=== PATIENT | female | born 1965 | race Caucasian/White ===

== ENCOUNTER 2020-05-27 06:19 | Outpatient (REF) | payer OTHER, SELFPAY | END 2020-05-27 06:20 | disposition home or self-care (01) | LOC: HO.LAB 06:19 | PROVIDERS: Visit Provider Internal Medicine | DX: Z20.828 Contact with and (suspected) exposure to other viral communicable diseases (principal) | CPT/HCPCS: C9803; U0003 ==

== ENCOUNTER 2020-07-14 06:50 | Outpatient (REF) | payer OTHER, SELFPAY | END 2020-07-14 06:51 | disposition home or self-care (01) | LOC: HO.LAB 06:50 | PROVIDERS: PCP Internal Medicine; Visit Provider Internal Medicine | DX: Z20.822 Contact with and (suspected) exposure to COVID-19 (principal) | CPT/HCPCS: 36415; C9803; U0003 ==

== ENCOUNTER 2020-08-12 08:19 | Outpatient (REF) | payer OTHER, SELFPAY ==
[2020-08-12 11:13] LABS: MANUAL DIFF FLAG NO
[2020-08-12 11:25] LABS: Basophils Absolute Auto 0.1 X10*3/uL (0.0-0.2); Basophils Percent Auto 1.1 % (0-2); Eosinophils Absolute Auto 0.2 X10*3/uL (0.0-0.4); Eosinophils Percent Auto 4.1 % (0-4); Hemoglobin 12.5 g/dl (12.0-16.0); Imm Gran Abs Auto 0.01 X10*3/uL (0.00-0.03); Imm Gran Pct Auto 0.2 % (0.0-0.4); Lymphocytes Absolute Auto 1.6 X10*3/uL (1.2-4.9); Lymphocytes Percent Auto 28.2 % (20-40); Mean Corpuscular HGB Conc 31.3 g/dl (31.0-35.0); Mean Corpuscular Hemoglobin 28.9 pg (27.0-33.0); Mean Corpuscular Volume 92.6 fL (80-98); Mean Platelet Volume 10.9 fL (9.4-12.3); Monocytes Absolute Auto 0.4 X10*3/uL (0.1-1.2); Monocytes Percent Auto 7.8 % (2-11); Neutrophils Absolute Auto 3.3 X10*3/uL (2.0-8.3); Neutrophils Percent Auto 58.6 % (45-73); Platelet Count 270 X10*3/uL (160-400); Red Blood Count 4.32 X10*6/uL (4.20-5.50); Red Cell Distribution Width 13.3 % (11.0-16.0); White Blood Count 5.6 X10*3/uL (4.8-10.8)
[2020-08-12 12:04] LABS: Alanine Aminotransferase 20 U/L (0-31); Albumin Level 4.3 g/dL (3.5-5.0); Alkaline Phosphatase 93 U/L (39-117); Anion Gap 13 (12-20); Aspartate Amino Transferase 23 U/L (5-31); Bilirubin Total 0.3 mg/dL (0.0-1.0); Blood Urea Nitrogen 20 mg/dL (9-16); Calcium 8.7 mg/dL (8.4-10.2); Carbon Dioxide 26 mmol/L (22-29); Chloride 107 mmol/L (96-108); Cholesterol 232 mg/dL; Estimated Glomerular Filt Rate > 60; Glucose Fasting 88 mg/dL (60-99); HDL Cholesterol 65 mg/dL; LDL Cholesterol Calculated 149 mg/dl; Potassium 4.4 mmol/L (3.3-5.1); Sodium 142 mmol/L (135-145); Total Protein 6.6 g/dL (6.5-8.0); Triglycerides 90 mg/dL
[2020-08-12 12:11] LABS: Thyroid Stimulating Hormone 1.57 uIU/mL (0.32-4.0); Vitamin D 25-OH Total 20.8 ng/mL (>30)
== END 2020-08-12 08:20 | disposition home or self-care (01) ==
LOC: HO.HMGCLDS 08:19
PROVIDERS: PCP Internal Medicine; Visit Provider Internal Medicine
DX: Z00.00 Encounter for general adult medical examination without abnormal findings (principal); E78.00 Pure hypercholesterolemia, unspecified; E66.3 Overweight
CPT/HCPCS: 36415; 80053; 80061; 82306; 84443; 85025

== ENCOUNTER 2021-07-29 07:56 | Outpatient (REF) | payer OTHER, SELFPAY ==
[2021-07-29 11:26] LABS: MANUAL DIFF FLAG NO
[2021-07-29 11:31] LABS: Basophils Percent Auto 0.9 % (0-2); Eosinophils Absolute Auto 0.1 X10*3/uL (0.0-0.4); Eosinophils Percent Auto 2.6 % (0-4); Hemoglobin 12.5 g/dl (12.0-16.0); Imm Gran Abs Auto 0.01 X10*3/uL (0.00-0.03); Imm Gran Pct Auto 0.2 % (0.0-0.4); Lymphocytes Absolute Auto 1.3 X10*3/uL (1.2-4.9); Lymphocytes Percent Auto 26.9 % (20-40); Mean Corpuscular HGB Conc 32.1 g/dl (31.0-35.0); Mean Corpuscular Hemoglobin 29.4 pg (27.0-33.0); Mean Corpuscular Volume 91.8 fL (80.0-98.0); Mean Platelet Volume 11.1 fL (9.4-12.3); Monocytes Absolute Auto 0.3 X10*3/uL (0.1-1.2); Monocytes Percent Auto 5.8 % (2-11); Neutrophils Percent Auto 63.6 % (45-73); Platelet Count 254 X10*3/uL (160-400); Red Blood Count 4.25 X10*6/uL (4.20-5.50); Red Cell Distribution Width 13.2 % (11.0-16.0); White Blood Count 4.7 X10*3/uL (4.8-10.8)
[2021-07-29 11:58] LABS: Alanine Aminotransferase 20 U/L (0-31); Albumin Level 4.3 g/dL (3.5-5.0); Alkaline Phosphatase 78 U/L (39-117); Anion Gap 12 (12-20); Aspartate Amino Transferase 24 U/L (5-31); Bilirubin Total 0.2 mg/dL (0.0-1.0); Blood Urea Nitrogen 10 mg/dL (9-16); Calcium 9.5 mg/dL (8.4-10.2); Carbon Dioxide 24 mmol/L (22-29); Chloride 110 mmol/L (96-108); Cholesterol 212 mg/dL; Estimated Glomerular Filt Rate > 60; Glucose Fasting 92 mg/dL (60-99); HDL Cholesterol 51 mg/dL; LDL Cholesterol Calculated 141 mg/dl; Potassium 4.1 mmol/L (3.3-5.1); Sodium 142 mmol/L (135-145); Total Protein 6.7 g/dL (6.5-8.0); Triglycerides 102 mg/dL
[2021-07-29 12:06] LABS: Thyroid Stimulating Hormone 1.43 uIU/mL (0.32-4.0); Vitamin D 25-OH Total 28.5 ng/mL (>30)
== END 2021-07-29 07:57 | disposition home or self-care (01) ==
LOC: HO.HMGCLDS 07:56
PROVIDERS: PCP Internal Medicine; Visit Provider Internal Medicine
DX: Z00.00 Encounter for general adult medical examination without abnormal findings (principal); E78.00 Pure hypercholesterolemia, unspecified; E55.9 Vitamin D deficiency, unspecified
CPT/HCPCS: 36415; 80053; 80061; 82306; 84443; 85025

== ENCOUNTER 2022-03-25 07:02 | Outpatient (REF) | payer OTHER, SELFPAY ==
[2022-03-25 11:57] LABS: Vitamin D 25-OH Total 35.4 ng/mL (>30)
[2022-03-25 11:58] LABS: Alanine Aminotransferase 26 U/L (0-31); Albumin Level 4.5 g/dL (3.5-5.0); Alkaline Phosphatase 93 U/L (39-117); Anion Gap 16 (12-20); Aspartate Amino Transferase 25 U/L (5-31); Bilirubin Total 0.3 mg/dL (0.0-1.0); Blood Urea Nitrogen 21 mg/dL (9-16); Calcium 9.3 mg/dL (8.4-10.2); Carbon Dioxide 24 mmol/L (22-29); Chloride 106 mmol/L (96-108); Cholesterol 196 mg/dL; Estimated Glomerular Filt Rate > 60; Glucose Fasting 97 mg/dL (60-99); HDL Cholesterol 60 mg/dL; LDL Cholesterol Calculated 114 mg/dl; Potassium 4.9 mmol/L (3.3-5.1); Sodium 141 mmol/L (135-145); Total Protein 6.8 g/dL (6.5-8.0); Triglycerides 113 mg/dL
== END 2022-03-25 07:03 | disposition home or self-care (01) ==
LOC: HO.HMGCLDS 07:02
PROVIDERS: PCP Internal Medicine; Visit Provider Internal Medicine
DX: E78.00 Pure hypercholesterolemia, unspecified (principal); E55.9 Vitamin D deficiency, unspecified
CPT/HCPCS: 36415; 80053; 80061; 82306

== ENCOUNTER 2024-04-03 08:00 | Outpatient (REF) | payer OTHER, SELFPAY ==
[2024-04-03 10:01] LABS: MANUAL DIFF FLAG NO
[2024-04-03 10:04] LABS: Appearance Urine Turbid; Color Urine Yellow; Glucose Urine UA Negative (Negative); Leukocyte Esterase Urine Negative (Negative); Nitrite Urine Negative (Negative); PH 5.5 (5.0-9.0); Specific Gravity - Urine >= 1.030 (1.005-1.025); Urine Blood Negative (Negative); Urine Ketones Negative (Negative); Urine Protein Negative (Neg-Trace)
[2024-04-03 10:05] LABS: Basophils Absolute Auto 0.1 X10*3/uL (0.0-0.2); Eosinophils Absolute Auto 0.2 X10*3/uL (0.0-0.4); Eosinophils Percent Auto 4.4 % (0-4); Hematocrit 39.8 % (37.0-47.0); Hemoglobin 12.8 g/dl (12.0-16.0); Lymphocytes Absolute Auto 1.6 X10*3/uL (1.2-4.9); Lymphocytes Percent Auto 30.5 % (20-40); Mean Corpuscular HGB Conc 32.2 g/dl (31.0-35.0); Mean Corpuscular Hemoglobin 29.2 pg (27.0-33.0); Mean Corpuscular Volume 90.7 fL (80.0-98.0); Mean Platelet Volume 10.6 fL (9.4-12.3); Monocytes Absolute Auto 0.4 X10*3/uL (0.1-1.2); Monocytes Percent Auto 7.5 % (2-11); Neutrophils Absolute Auto 2.9 x10*3/uL (2.0-8.3); Neutrophils Percent Auto 56.6 % (45-73); Platelet Count 272 X10*3/uL (160-400); Red Blood Count 4.39 X10*6/uL (4.20-5.50); Red Cell Distribution Width 13.2 % (11.0-16.0); White Blood Count 5.2 X10*3/uL (4.8-10.8)
[2024-04-03 10:10] LABS: Bacteria Urine None Seen (None Seen); Hyaline Casts Urine 0-2 /LPF (0-2); RBC Urine 0-2 /HPF (0-2); WBC Urine 0-5 /HPF (0-5)
[2024-04-03 10:27] LABS: Alanine Aminotransferase 22 U/L (0-31); Albumin Level 4.4 g/dL (3.5-5.0); Alkaline Phosphatase 75 U/L (39-117); Anion Gap 11 (12-20); Aspartate Amino Transferase 24 U/L (5-31); Bilirubin Total 0.4 mg/dL (0.0-1.0); Blood Urea Nitrogen 15 mg/dL (9-16); Calcium 9.7 mg/dL (8.4-10.2); Carbon Dioxide 26 mmol/L (22-29); Chloride 110 mmol/L (96-108); Cholesterol 192 mg/dL (<200); Estimated Glomerular Filt Rate > 60; Glucose Fasting 101 mg/dL (60-99); HDL Cholesterol 63 mg/dL (>40); LDL Cholesterol Calculated 107 mg/dL (<100); Sodium 143 mmol/L (135-145); Total Protein 6.9 g/dL (6.5-8.0); Triglycerides 114 mg/dL (<150)
[2024-04-03 10:45] LABS: Thyroid Stimulating Hormone 1.47 uIU/mL (0.32-4.0); Vitamin D 25-OH Total 45.2 ng/mL (>30)
== END 2024-04-03 08:01 | disposition home or self-care (01) ==
LOC: HO.HMGCLDS 08:00
PROVIDERS: PCP Internal Medicine; Visit Provider Internal Medicine
DX: E78.00 Pure hypercholesterolemia, unspecified (principal); E55.9 Vitamin D deficiency, unspecified; E66.3 Overweight
CPT/HCPCS: 36415; 80053; 80061; 81001; 82306; 84443; 85025

== ENCOUNTER 2024-09-19 08:54 | Outpatient (AMB) | payer OTHER, SELFPAY ==
--- NOTE | 2024-09-19 08:54 | A.OFFPC_ITS ---
Vital Signs 09/19/24 08:58 Height 5 ft 2 in Weight 160 lb BMI 29.3 BP 140/80 H Blood Pressure Location Rt brachial Pulse 52 Pulse Source Pulse Oximeter Temp 97.2 F Pulse Oximetry (%) 97 Intake Visit Reasons: physical Intake Note: no issues Allergies No Known Allergies Allergy (Verified 09/19/24 09:33) Medication List - Last Reconciled 09/19/24 by Olivia Reyes PA-C cholecalciferol (vitamin D3) 25 mcg PO DAILY rosuvastatin 5 mg PO DAILY PFSH Medical History Elevated blood pressure reading Overweight (BMI 25.0-29.9) Screening for HPV (human papillomavirus) (~08/14/19) History of mammogram (~03/29/24) Ductal hyperplasia of breast Vitamin D deficiency Mild hypercholesterolemia Menopause Depression Surgical History History of colonoscopy (~11/03/17) Physical exam (Primary Care) Vital Signs: Last Vital Signs Temp 97.2 F 09/19/24 08:58 Pulse 52 09/19/24 08:58 BP 140/80 H 09/19/24 08:58 Pulse Ox 97 09/19/24 08:58 Care Plan Goal for BP management: <130/80 patient to monitor her blood pressure over the next 2 weeks and return with blood pressure diary to determine the patient needs to be started on blood pressure medication. BMI result Body Mass Index 29.3 BMI Assessment/Plan discussion: High BMI High, discussed plan: lifestyle, weight reduction, dietary, physical activity and alcohol moderation Coding Level of Care Code New Pt Prev Care 18-39yr([id number] Diagnoses Annual physical exam Z00.00 Vitamin D deficiency E55.9 Mild hypercholesterolemia E78.00 Depression F32.A Ductal hyperplasia of breast N60.99 Overweight (BMI 25.0-29.9) E66.3 Elevated blood pressure reading R03.0 Assessment & Plan Assessment & Plan (1) Annual physical exam: Code(s): Z00.00 - Encounter for general adult medical examination without abnormal findings (2) Vitamin D deficiency: Code(s): E55.9 - Vitamin D deficiency, unspecified Category: Medical Plan: Patient's last vitamin-D levels in April of 2024 within normal ranges. Patient to continue vitamin-D supplement 25 mcg daily. Condition is chronic and stable continue to monitor. (3) Mild hypercholesterolemia: Code(s): E78.00 - Pure hypercholesterolemia, unspecified Category: Medical Plan: Goal LDL less than 100. Last LDL 04/22/2024 was 107. Will continue rosuvastatin 5 mg daily. Patient to improve her diet and exercise regimen. To decrease salt intake. Condition is chronic and stable continue to monitor. (4) Depression: Code(s): F32.A - Depression, unspecified Category: Medical Plan: Patient with history of depression has been state of lies without any medications. Condition is chronic and stable continue to monitor. (5) Ductal hyperplasia of breast: Comment: Followed by [facility]. Final pathology for ultrasound guided core biopsy of mass in the right breast revealed nodular area of adenosis cysts, usual ductal hyperplasia, and pseudoangiomatous stromal hyperplasia (PASH) Code(s): N60.99 - Unspecified benign mammary dysplasia of unspecified breast Category: Medical Plan: Patient being followed by [facility]. Last needle biopsy was 04/22/2024. Patient due for repeat ultrasound 6 months since April. Condition is chronic and stable continue to monitor. (6) Overweight (BMI 25.0-29.9): Code(s): E66.3 - Overweight Category: Medical Plan: Patient has improved her diet and exercise regimen. Condition is chronic and stable continue to monitor. (7) Elevated blood pressure reading: Code(s): R03.0 - Elevated blood-pressure reading, without diagnosis of hypertension Category: Medical Plan: Patient's blood pressure noted to be elevated. She will return in 2 weeks with blood pressure diary to determine if patient will need to be started on blood pressure medication. Condition is stable will continue to monitor. Plan Plan Patient was informed and verbally consented to the use of an ambient scribe for clinic note documentation during this visit. 1. Elevated blood-pressure reading, without diagnosis of hypertension Blood pressure monitoring at home is recommended to determine if intervention beyond diet and stress control is required. 2. Hyperlipidemia Rosuvastatin remains prescribed to target LDL below 100 mg/dL. Dietary modifications will emphasize low fat/sodium intake. Re-testing is scheduled as part of monitoring efforts. 3. Vitamin D Deficiency Continuation of vitamin D supplementation with monitoring is advised. 4. Weight Management Issues The patient is counseled to focus on a balanced diet low in saturated fats, supporting both weight and cholesterol management goals. 5. Usual Ductal Hyperplasia Right Breast Scheduled ultrasound follow-up will monitor the lesion status. No immediate interventions unless changes present. Discussion Notes I discussed with the patient the management of her current health problems, notably hyperlipidemia, prehypertension, and her history of usual ductal hyperplasia. We reviewed dietary factors impacting cholesterol and blood pressure, encouraging cessation of high-fat diets, such as the keto plan recommended by [facility], as adverse for cholesterol management. I explained the importance of follow-up imaging for usual ductal hyperplasia and the role of ongoing blood pressure monitoring. The necessity for lifestyle adjustments to manage her weight and stress, engaging in routine exercise, and continuing vitamin D supplementation were emphasized. The plan to re-evaluate blood work in preparation for her next follow-up was also highlighted. Orders: Orders Complete Blood Count Auto Diff Today Z00.00 - Encounter for general adult medical examination without abnormal findings Comprehensive [place]. Panel Fast Today Z00.00 - Encounter for general adult medical examination without abnormal findings C Reactive Protein Today Z00.00 - Encounter for general adult medical examination without abnormal findings Hemoglobin A1c Today Z00.00 - Encounter for general adult medical examination without abnormal findings Lipid Panel Today Z00.00 - Encounter for general adult medical examination without abnormal findings Magnesium Today Z00.00 - Encounter for general adult medical examination without abnormal findings Vitamin D 25-OH Total Today Z00.00 - Encounter for general adult medical examination without abnormal findings Vitamin B12 and Folate Today Z00.00 - Encounter for general adult medical examination without abnormal findings Vitamin B1 Today Z00.00 - Encounter for general adult medical examination without abnormal findings Erythrocyte Sedimentation Rate Today Z00.00 - Encounter for general adult medical examination without abnormal findings Liver Panel Today Z00.00 - Encounter for general adult medical examination without abnormal findings TSH reflex Free T4 Today Z00.00 - Encounter for general adult medical examination without abnormal findings Parathyroid Hormone Intact Today Z00.00 - Encounter for general adult medical examination without abnormal findings Patient Instructions: Patient Instructions - Continue taking rosuvastatin as prescribed. - Follow dietary recommendations to reduce dietary fats and sodium. - Complete scheduled follow-up breast ultrasound. - Monitor blood pressure at home with purchased or borrowed equipment and log daily readings. - Maintain current exercise regime and consider stress reducing techniques. - Follow-up in two weeks for blood pressure re-evaluation and general assessment. - Continue taking vitamin D supplements as directed. - Contact if experiencing symptoms like chest pain or significant blood pressure changes. Scribe Plan - Not visible on output: History of Present Illness The patient is a 59-year-old female presenting for an annual physical examination. Her medical history includes hyperlipidemia, managed with rosuvastatin, and vitamin D deficiency, for which she takes supplementation. Although she previously experienced depression, it is not currently being treated pharmacologically. She underwent a needle biopsy on 04/12/2024 of the right breast, revealing usual ductal hyperplasia, with follow-up imaging planned. Additional history includes normal findings on a 2018 colonoscopy, with a planned follow-up in 2027. Her current concerns involve maintaining weight post-menopause, high stress levels possibly affecting her blood pressure, and challenges adhering to dietary recommendations to both manage cholesterol and maintain or reduce weight. Social History - Employment: Works in [employer], noted as stressful. - Exercise: Runs and swims regularly, exhibiting high levels of physical activity. - Nutrition: Following a high-fat, keto-like diet as part of a dietary program known as [facility]. - Weight Management: Reports difficulty maintaining weight post-menopause, and was previously on Contrave. - Lifestyle: Engages in multiple pharmaceutical and wellness interventions; stress noted as influencing hypertension and dietary choices. Review of Systems - Cardiovascular: Reports elevated blood pressure; denies chest pain or shortness of breath. - Gastrointestinal: Denies abdominal pain or constipation. - Genitourinary: Denies abnormal urination. - Musculoskeletal: Denies leg swelling. - Neurological: Denies dizziness. - Psychiatric: Denies current depression. Physical Exam Appearance: Alert. Oriented X3. No acute distress. Head: Normal external exam. Normocephalic. Atraumatic. Eyes: Pupils are equal, round, and reactive to light. Extraocular movements intact. Conjunctiva and sclera normal. Eyelids normal. Ears: External auditory canal normal. Tympanic membranes normal. Throat: Pharynx normal. Uvula midline. Moist mucous membranes. Neck: Normal inspection. Neck supple. Full range of motion. No adenopathy. Thyroid Normal. No meningeal signs. No neck mass noted. Cardiovascular: Normal heart rate and rhythm. Heart sound normal. No murmurs noted. Pulses normal throughout. Respiratory: No respiratory distress. Painless inspiration. Breath sounds normal. No wheezes/rales/rhonchi noted. Chest nontender. No accessory muscle usage noted or decreased air movement noted. Abdomen: Soft and nontender. Bowel sounds normal in all 4 quadrants. No distention noted. No organomegaly noted. No visible injury noted. Back: No costovertebral angle tenderness. Full range of motion noted. Skin: Skin warm and dry. Normal skin color. Normal skin turgor. No rashes/lesions/lacerations noted. Extremities: No lower extremity edema. Extremities exhibit normal range of motion. Extremities nontender. Neuro: Oriented X 3. No motor deficit. No sensory deficit. Reflexes normal. Blood pressure was noted to be 140/80. Results - Labs: LDL 107 mg/dL (desirable <100 mg/dL), Total Cholesterol 192 mg/dL (desirable <200 mg/dL), Normal Vitamin D levels, Normal thyroid panel - Tests and Diagnostics: Right breast usual ductal hyperplasia identified via needle biopsy, scheduled ultrasound follow-up, Colonoscopy performed in 2018 was normal
[2024-09-19 08:58] VITALS: BP 140/80; PULSE 52; TEMP 36.2; O2SAT 97; BMI 29.3
--- OUTSIDE RECORDS SUMMARY | 2024-09-19 09:46 | XMS_ITS | Continuity of Care Document ---
Author Organization [employer] Address [address] [place] [address] Insurance Providers Payer Plan Claims Address Claims Phone Policy Number Group Number Relation Employer Guarantor Name Guarantor Guarantor Address Guarantor Phone [place] [address] [facility] [address], [place] [address] tel:[phone] [id number] [id number] Self Kandi Ryder [address] [place] [address] [id number] [facility] [place] [address] [facility] [address], [place] [address] tel:[phone] [id number] [id number] Self Kandi Ryder [address] [place] [address] [id number] Problems Condition ICD9 code ICD10 code SNOMED code Start Date End Date S tatus Encounter for screening for other metabolic disorders Z13.228 Results No Results Allergies, adverse reactions, alerts No known allergies and adverse reactions Medications No administered medications reported Vital Signs No vital signs reported Social History No smoking Hx information available
== END 2024-09-19 09:24 | disposition home or self-care (01) ==
LOC: HO.HMCSH 08:54
PROVIDERS: PCP Internal Medicine; Visit Provider Physician Assistant Medical
DX: Z00.00 Encounter for general adult medical examination without abnormal findings (principal); E55.9 Vitamin D deficiency, unspecified; E78.00 Pure hypercholesterolemia, unspecified; F32.A Depression, unspecified; N60.99 Unspecified benign mammary dysplasia of unspecified breast; E66.3 Overweight; R03.0 Elevated blood-pressure reading, without diagnosis of hypertension

== ENCOUNTER → 2024-09-19 08:54 | Outpatient (BNVA) | payer OTHER, SELFPAY | PROVIDERS: PCP Internal Medicine; Visit Provider Physician Assistant Medical ==

== ENCOUNTER 2024-09-28 07:54 | Outpatient (REF) | payer OTHER, SELFPAY ==
[2024-09-28 10:20] LABS: MANUAL DIFF FLAG NO
[2024-09-28 10:24] LABS: Basophils Absolute Auto 0.1 X10*3/uL (0.0-0.2); Basophils Percent Auto 1.3 % (0-2); Eosinophils Absolute Auto 0.2 X10*3/uL (0.0-0.4); Eosinophils Percent Auto 3.4 % (0-4); Hematocrit 38.8 % (37.0-47.0); Hemoglobin 12.4 g/dl (12.0-16.0); Imm Gran Abs Auto 0.01 X10*3/uL (0.00-0.03); Imm Gran Pct Auto 0.2 % (0.0-0.4); Lymphocytes Absolute Auto 1.5 X10*3/uL (1.2-4.9); Lymphocytes Percent Auto 32.4 % (20-40); Mean Corpuscular Volume 90.7 fL (80.0-98.0); Mean Platelet Volume 10.7 fL (9.4-12.3); Monocytes Absolute Auto 0.3 X10*3/uL (0.1-1.2); Monocytes Percent Auto 6.5 % (2-11); Neutrophils Absolute Auto 2.7 x10*3/uL (2.0-8.3); Neutrophils Percent Auto 56.2 % (45-73); Platelet Count 263 X10*3/uL (160-400); Red Blood Count 4.28 X10*6/uL (4.20-5.50); Red Cell Distribution Width 13.4 % (11.0-16.0); White Blood Count 4.8 X10*3/uL (4.8-10.8)
[2024-09-28 10:41] LABS: Estimated Average Glucose 111 mg/dL; Hemoglobin A1c % 5.5 % (<6.0); Total Hemoglobin (HGBA1C) 3337.8779 umol/L
[2024-09-28 11:00] LABS: Alanine Aminotransferase 33 U/L (0-31); Albumin Level 4.3 g/dL (3.5-5.0); Anion Gap 9 (12-20); Aspartate Amino Transferase 51 U/L (5-31); Bilirubin Direct 0.1 mg/dL (0.0-0.5); Bilirubin Total 0.4 mg/dL (0.0-1.0); Blood Urea Nitrogen 17 mg/dL (9-16); C Reactive Protein 0.25 mg/dL (< or = 0.50); Calcium 9.7 mg/dL (8.4-10.2); Carbon Dioxide 28 mmol/L (22-29); Chloride 111 mmol/L (96-108); Cholesterol 195 mg/dL (<200); Estimated Glomerular Filt Rate > 60; Glucose Fasting 96 mg/dL (60-99); HDL Cholesterol 65 mg/dL (>40); LDL Cholesterol Calculated 112 mg/dL (<100); Potassium 4.5 mmol/L (3.3-5.1); Sodium 143 mmol/L (135-145); Total Protein 6.7 g/dL (6.5-8.0); Triglycerides 94 mg/dL (<150)
[2024-09-28 11:05] LABS: Parathyroid Hormone Intact 56.4 pg/mL (8.7-77.1)
[2024-09-28 11:15] LABS: Erythrocyte Sedimentation Rate 9 MM/HR (0-20)
[2024-09-28 11:16] LABS: Folate 9.9 ng/mL (> or = 4.0); Vitamin B12 259 pg/mL (200-900)
[2024-09-28 11:33] LABS: Alkaline Phosphatase 72 U/L (39-117); TSH reflex Free T4 1.56 uIU/mL (0.32-4.0); Vitamin D 25-OH Total 36.1 ng/mL (>30)
[2024-10-11 15:28] LABS: Vitamin B1 13 nmol/L (8-30)
== END 2024-09-28 07:55 | disposition home or self-care (01) ==
LOC: HO.HMGCLDS 07:54
PROVIDERS: PCP Internal Medicine; Visit Provider Physician Assistant Medical
DX: Z00.00 Encounter for general adult medical examination without abnormal findings (principal); Z13.1 Encounter for screening for diabetes mellitus; Z13.6 Encounter for screening for cardiovascular disorders
CPT/HCPCS: 36415; 80053; 80061; 80076; 82248; 82306; 82607; 82746; 83036; 83735; 83970; 84425; 84443; 85025; 85652; 86140

== ENCOUNTER 2024-10-22 08:54 | Outpatient (AMB) | payer OTHER, SELFPAY ==
--- NOTE | 2024-10-22 08:59 | MHC.PC.OV ---
Vital Signs 10/22/24 09:00 Height 5 ft 2 in Weight 154 lb BMI 28.2 BP 120/70 Respiration 14 Pulse 55 Pulse Source Pulse Oximeter Temp 97.6 F Temp Source Temporal Artery Scan Pulse Oximetry (%) 99 Oxygen Delivery Method Room Air Intake Visit Reasons: follow up Anesthesiologist Attending Required: No Accompanied by: Self / Same As Patient Allergies No Known Allergies Allergy (Verified 10/22/24 09:24) Medication List - Last Reconciled 10/22/24 by Olivia Reyes PA-C cholecalciferol (vitamin D3) 25 mcg PO DAILY rosuvastatin 5 mg PO DAILY Tobacco use date assessed: 10/22/24 Dental Screening Dental Screen Date: 10/22/24 Did you have a dental visit in the last 12 months?: Yes Did you have a dental problem in the last 6 months where you did not have access to dental care?: No Was dental information given to patient?: Patient has dentist HPI follow up HPI Details The patient is a 59-year-old female presenting with concerns regarding blood pressure management, hydration during exercise, muscle cramps, and potential liver enzyme abnormalities. Her blood pressure readings have been stable, typically around 120/70. She is actively engaged in a healthy lifestyle and prepares for the [email or web address]. An episode of dizziness was noted during exercise due to dehydration, with muscle cramps suggesting possible dehydration. She has been hydrating using electrolyte supplements and noon tablets. Furthermore, the patient takes a low-dose statin, expressing concern over a recent deviation in liver enzyme results, believing there may be an association with statin use. Follow-up testing for liver function has been planned in three to six months to monitor any changes. Social History - Engages in regular physical exercise, including long-distance running. - Actively monitors blood pressure and participates in a health-conscious lifestyle. - Dietary intake includes protein sources such as steak, fish, chicken, and snacks like peanut butter and granola. - Uses electrolyte supplements for hydration during exercise. 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 [facility] Medical History (Updated 10/22/24 @ 09:33 by Olivia Reyes PA-C) Elevated ALT measurement Elevated AST (SGOT) Elevated blood pressure reading Overweight (BMI 25.0-29.9) Screening for HPV (human papillomavirus) (~08/14/19) History of mammogram (~03/29/24) Ductal hyperplasia of breast Vitamin D deficiency Mild hypercholesterolemia Menopause Depression Surgical History History of colonoscopy (~11/03/17) Family History Father No problems noted. Mother Heart problem Social History Housing: House Alcohol intake: current Alcohol intake frequency: holidays/special occasions only Alcohol type: wine Patient Tobacco Use Status: Former Tobacco user service: No Current occupational status: employed Cognitive needs: No Hearing needs: No Vision needs: Yes (rx glasses) Questionnaire PHQ-9 Over the last 2 weeks, how often have you been bothered by any of the following problems? 1. Little interest or pleasure in doing things: not at all 2. Feeling down, depressed, or hopeless: not at all 3. Trouble falling or staying asleep, or sleeping too much: not at all 4. Feeling tired or having little energy: not at all 5. Poor appetite or overeating: not at all 6. Feeling bad about yourself - or that you are a failure or have let yourself or your family down: not at all 7. Trouble concentrating on things, such as reading the newspaper or watching television: not at all 8. Moving or speaking so slowly that other people could have noticed. Or the opposite - being so fidgety or restless that you have been moving around a lot more than usual: not at all 9. Thoughts that you would be better off or of hurting yourself in some way: not at all Total score: 0 Depression Screening Interpretation: Negative Depression Screening Done: Yes 57284 - PHQ-9 Billing: Yes Source: Developed by Drs. Malick Capps, Gloria Smith, Luis Alberto Moran and colleagues, with an educational david from [employer]. Thrive Questionnaire Date Thrive assessed: 10/22/24 I am a: Patient What is your living situation today?: I have a steady place to live Within the past 12 months, did the food you bought not last and you didn't have the money to get more?: Never true Within the past 12 months, did you worry whether your food would run out before you got money to buy more?: Never true Do you have trouble paying for medicines?: No Do you have trouble getting transportation to medical appointments?: No Do you have trouble paying your heating and electricity bill?: No Do you have trouble taking care of your child, family member or friend?: No Do you have trouble with day-to-day activities such as bathing, preparing meals, shopping, managing finances, etc.?: No Are you currently unemployed and looking for a job?: No Are you interested in more education?: No Please select the resources that you would like help with: None THRIVE Score: 0 AUDIT C Alcohol Use Questionnaire (AUDIT-C) 1. How often do you have a drink containing alcohol?: Monthly or less 2. How many drinks containing alcohol do you have on a typical day when you are drinking?: 1 or 2 3. How often do you have six or more drinks on one occasion?: Never Total Score: 1 Score Reviewed/Action Taken: No GENEVA-7 AMB Questionnaire GENEVA-7 Date GENEVA - 7 assessed: 10/22/24 Feeling nervous, anxious, or on edge: 0 = Not at all Not being able to stop or control worryin = Not at all Worrying too much about different things: 0 = Not at all Trouble relaxin = Not at all Being so restless that it is hard to sit still: 0 = Not at all Becoming easily annoyed or irritable: 0 = Not at all Feeling afraid as if something awful might happen: 0 = Not at all Total GENEVA-7 score (0-4 normal; 5-9 mild; 10-14 moderate; 15-21 severe): 0 Source: Developed by Drs. Malick Capps, Gloria Smith, Luis Alberto Moran and colleagues, with an educational david from [employer]. GENEVA-7 Assessment Billing GENEVA-7 Assessment Tool: GENEVA-7 Assessment 38902 Review of Systems Const Details: - Cardiovascular: Denies chest pains. - Neurological: Reports occasional dizziness during workouts. - Musculoskeletal: Reports muscle cramps following intense exercise. - Gastrointestinal: Denies abdominal pain. - General: Denies headaches and feels healthy with current lifestyle. Physical exam (Primary Care) Vital Signs: Last Vital Signs Temp 97.6 F 10/22/24 09:00 Pulse 55 10/22/24 09:00 Resp 14 10/22/24 09:00 BP 120/70 10/22/24 09:00 Pulse Ox 99 10/22/24 09:00 Oxygen Delivery Method Room Air 10/22/24 09:00 Care Plan Goal for BP management: <130/90 at Goal BMI result Body Mass Index 28.2 BMI Assessment/Plan discussion: High BMI High, discussed plan: lifestyle, weight reduction, dietary, physical activity and alcohol moderation Tobacco/Smoking Status: Tobacco use Status Tobacco use date assessed 10/22/24 10/22/24 09:05 Patient Tobacco Use Status Former Tobacco user 10/22/24 09:13 PHQ-9: PHQ-9 Score PHQ-9: Total score 0 10/22/24 09:13 Depression Screening Interpretation: Negative Thrive Assessment: Date of Thrive Assessment Date Thrive assessed 10/22/24 10/22/24 09:05 Const Other: Appearance: Alert. Oriented X3. No acute distress. Head: Normal external exam. Normocephalic. Atraumatic. Eyes: Pupils are equal, round, and reactive to light. Extraocular movements intact. Conjunctiva and sclera normal. Eyelids normal. Throat: Pharynx normal. Uvula midline. Moist mucous membranes. Neck: Normal inspection. Neck supple. Full range of motion. Cardiovascular: Normal heart rate and rhythm. Respiratory: No respiratory distress. Painless inspiration. Skin: Skin warm and dry. Normal skin color. Extremities: Extremities exhibit normal range of motion. Results Reviewed Results Reviewed: - Labs: Liver enzymes were noted to be elevated. Cholesterol management shows LDL at 112. Coding Level of Care Code Est Pt Level 3 (31371) Complex EM visit Add On G2211 Diagnoses Overweight (BMI 25.0-29.9) E66.3 Mild hypercholesterolemia E78.00 Elevated AST (SGOT) R74.01 Elevated ALT measurement R74.01 Additional Codes PHQ-9 - 27691 - PHQ-9 Billing: Yes ([id number]) GENEVA-7 Assessment Billing - GENEVA-7 Assessment Tool: GENEVA-7 Assessment 55328 ([id number]) Assessment & Plan Assessment & Plan (1) Overweight (BMI 25.0-29.9): Code(s): E66.3 - Overweight Category: Medical Plan: Patient to continue exercising, hydrating during exercise and a healthier diet. Condition is chronic and stable continue to monitor. (2) Mild hypercholesterolemia: Code(s): E78.00 - Pure hypercholesterolemia, unspecified Category: Medical Plan: The patient is taking a statin at 5 mg for cholesterol management, with LDL noted at 112. Liver function is being monitored due to reported liver enzymes potentially associated with statin use, with planned re-evaluation in 3-6 months. Condition is chronic and stable continue to monitor. (3) Elevated AST (SGOT): Code(s): R74.01 - Elevation of levels of liver transaminase levels Category: Medical Plan: The patient reported elevated liver enzymes with concern about correlation with statin usage. Monitoring for abdominal pain or jaundice was advised, with follow-up blood work to assess liver function over the next 3-6 months. Condition is new although stable will continue to monitor. (4) Elevated ALT measurement: Code(s): R74.01 - Elevation of levels of liver transaminase levels Category: Medical Plan: The patient reported elevated liver enzymes with concern about correlation with statin usage. Monitoring for abdominal pain or jaundice was advised, with follow-up blood work to assess liver function over the next 3-6 months. Condition is new although stable will continue to monitor. Plan Plan Patient was informed and verbally consented to the use of an ambient scribe for clinic note documentation during this visit. 1. Dehydration The patient reported dizziness related to hydration during long runs. Advised to maintain adequate hydration and balance electrolytes during exercise. Use of liquid IV and noon tablets were discussed and advised. 2. Essential Hypertension The patient's current blood pressure is stable at 120/70, supported by lifestyle modifications, including regular exercise and dietary adjustments. No changes to the management plan for hypertension were necessary, with continued monitoring recommended if there are any future deviations. 3. Hyperlipidemia The patient is taking a statin at 5 mg for cholesterol management, with LDL noted at 112. Liver function is being monitored due to reported liver enzymes potentially associated with statin use, with planned re-evaluation in 3-6 months. 4. Muscle Cramps Muscle cramps post-exercise were attributed to potential dehydration. Dietary adjustments include increased intake use of electrolyte supplementation. Monitoring and symptom tracking were encouraged. 5. Concern For Liver Enzyme Abnormalities The patient reported elevated liver enzymes with concern about correlation with statin usage. Monitoring for abdominal pain or jaundice was advised, with follow-up blood work to assess liver function over the next 3-6 months. I discussed with the patient that her blood pressure is stable and well-controlled, emphasizing the importance of maintaining her current lifestyle. The patient expressed concern about muscle cramps during her exercise routine, likely due to dehydration and inadequate electrolyte intake. I recommended maintaining hydration and using electrolyte supplements, including liquid IV alternatives, especially during prolonged physical activities. We discussed elevated liver enzymes possibly associated with statin use; monitoring will continue with follow-up testing in 3-6 months. Educational discussion included maintaining dietary magnesium levels to prevent muscle cramping, with the understanding that these dietary efforts are supported by ongoing hydration practices. The patient expressed comprehension and agreement with the suggested follow-up and monitoring plan. Orders: Orders Complete Blood Count Auto Diff Today Z00.00 - Encounter for general adult medical examination without abnormal findings Comprehensive [place]. Panel Fast Today Z00.00 - Encounter for general adult medical examination without abnormal findings Lipid Panel Today Z00.00 - Encounter for general adult medical examination without abnormal findings Magnesium Today Z00.00 - Encounter for general adult medical examination without abnormal findings Vitamin D 25-OH Total Today Z00.00 - Encounter for general adult medical examination without abnormal findings Vitamin B12 and Folate Today Z00.00 - Encounter for general adult medical examination without abnormal findings TSH reflex Free T4 Today Z00.00 - Encounter for general adult medical examination without abnormal findings Erythrocyte Sedimentation Rate Today Z00.00 - Encounter for general adult medical examination without abnormal findings Liver Panel Today Z00.00 - Encounter for general adult medical examination without abnormal findings Hemoglobin A1c Today Z00.00 - Encounter for general adult medical examination without abnormal findings Patient Instructions: - Stay hydrated, especially before and during exercise, using liquid IV hydration packs. - Continue regular monitoring of blood pressure and maintain current healthy lifestyle practices. - Monitor for any symptoms related to liver function (e.g., abdominal pain, jaundice), and report immediately if observed. - Follow up in 3-6 months for repeat liver function tests and evaluation. - Continue dietary modifications to include magnesium-rich foods to address muscle cramps. - Stay active and maintain preparations for the [employer] as planned.
[2024-10-22 09:00] VITALS: BP 120/70; PULSE 55; RESP 14; TEMP 36.4; O2SAT 99; BMI 28.2
== END 2024-10-22 09:23 | disposition home or self-care (01) ==
LOC: HO.HMCSH 08:54
PROVIDERS: PCP Internal Medicine; Visit Provider Physician Assistant Medical
DX: E66.3 Overweight (principal); E78.00 Pure hypercholesterolemia, unspecified; R74.01 Elevation of levels of liver transaminase levels

== ENCOUNTER → 2024-10-22 08:54 | Outpatient (BNVA) | payer OTHER, SELFPAY | PROVIDERS: PCP Internal Medicine; Visit Provider Physician Assistant Medical | DX: E66.3 Overweight (principal); Z68.28 Body mass index [BMI] 28.0-28.9, adult; E86.0 Dehydration; E78.00 Pure hypercholesterolemia, unspecified; R74.01 Elevation of levels of liver transaminase levels; Z79.899 Other long term (current) drug therapy | CPT/HCPCS: 96127 ==

== ENCOUNTER 2024-12-31 13:08 | Outpatient (AMB) | payer OTHER, SELFPAY ==
[2024-12-31 13:18] VITALS: BP 116/56; PULSE 54; RESP 16; TEMP 36.5; O2SAT 99; BMI 28.0
--- NOTE | 2024-12-31 13:18 | A.OFFPC_ITS ---
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 The discomfort began approximately three weeks ago following increased physical activity, including participation in a half marathon. The patient reports feeling the pain during activities such as walking, wide stepping, and swimming, suggesting a possible muscle strain. The patient also experienced a sinus cold with a persistent cough, which has sin ce resolved. She noted that coughing exacerbated the groin discomfort, further indicating a possible muscular component. Additionally, the patient reports a history of hip pain, which she suspects may be related to the current groin issue. The pain is not constant but is noticeable during specific movements such as squatting and running. She denies fevers, nausea vomiting, rash, flank pain, diarrhea constipation, black or bloody stools, dysuria hematuria, abnormal vaginal discharge, urinary frequency or urgency or any other symptoms related to this. Social History - Exercise: Participated in a half oskar hon, indicating a high level of physical activity. [facility] Medical History (Updated 12/31/24 @ 13:45 by Olivia Reyes PA-C) Right hip pain Right lower quadrant abdominal pain Elevated ALT measurement Elevated AST (SGOT) Elevated blood pressure reading Overweight (BMI 25.0-29.9) Screening for HPV (human papillomavirus) (~08/14/19) History of mammogram (~03/29/24) Ductal hyperplasia of breast Vitamin D deficiency Mild hypercholesterolemia Menopause Depression Surgical History History of colonoscopy (~11/03/17) Family History Father No problems noted. Mother Heart problem Social History Housing: House Alcohol intake: current Alcohol intake frequency: holidays/special occasions only Alcohol type: wine Patient Tobacco Use Status: Former Tobacco user service: No Current occupational status: employed Cognitive needs: No Hearing needs: No Vision needs: Yes (rx glasses) Questionnaire PHQ-9 Over the last 2 weeks, how often have you been bothered by any of the following problems? 1. Little interest or pleasure in doing things: not at all 2. Feeling down, depressed, or hopeless: not at all 3. Trouble falling or staying asleep, or sleeping too much: not at all 4. Feeling tired or having little energy: not at all 5. Poor appetite or overeating: not at all 6. Feeling bad about yourself - or that you are a failure or have let yourself or your family down: not at all 7. Trouble concentrating on things, such as reading the newspaper or watching television: not at all 8. Moving or speaking so slowly that other people could have noticed. Or the opposite - being so fidgety or restless that you have been moving around a lot more than usual: not at all 9. Thoughts that you would be better off or of hurting yourself in some way: not at all Total score: 0 Depression Screening Interpretation: Negative Depression Screening Done: Yes 50255 - PHQ-9 Billing: Yes Source: Developed by Drs. Malick Capps, Gloria Smith, Luis Alberto Moran and colleagues, with an educational david from [employer]. Thrive Questionnaire Date Thrive assessed: 10/22/24 I am a: Patient What is your living situation today?: I have a steady place to live Within the past 12 months, did the food you bought not last and you didn't have the money to get more?: Never true Within the past 12 months, did you worry whether your food would run out before you got money to buy more?: Never true Do you have trouble paying for medicines?: No Do you have trouble getting transportation to medical appointments?: No Do you have trouble paying your heating and electricity bill?: No Do you have trouble taking care of your child, family member or friend?: No Do you have trouble with day-to-day activities such as bathing, preparing meals, shopping, managing finances, etc.?: No Are you currently unemployed and looking for a job?: No Are you interested in more education?: No Please select the resources that you would like help with: None THRIVE Score: 0 AUDIT C Alcohol Use Questionnaire (AUDIT-C) 1. How often do you have a drink containing alcohol?: Monthly or less 2. How many drinks containing alcohol do you have on a typical day when you are drinking?: 1 or 2 3. How often do you have six or more drinks on one occasion?: Never Total Score: 1 Score Reviewed/Action Taken: No GENEVA-7 AMB Questionnaire GENEVA-7 Date GENEVA - 7 assessed: 10/22/24 Feeling nervous, anxious, or on edge: 0 = Not at all Not being able to stop or control worryin = Not at all Worrying too much about different things: 0 = Not at all Trouble relaxin = Not at all Being so restless that it is hard to sit still: 0 = Not at all Becoming easily annoyed or irritable: 0 = Not at all Feeling afraid as if something awful might happen: 0 = Not at all Total GENEVA-7 score (0-4 normal; 5-9 mild; 10-14 moderate; 15-21 severe): 0 Source: Developed by Drs. Malick Capps, Gloria Smith, Luis Alberto Moran and colleagues, with an educational david from [employer]. GENEVA-7 Assessment Billing GENEVA-7 Assessment Tool: GENEVA-7 Assessment 56011 Review of Systems Const Details: - Musculoskeletal: Reports groin pain during walking, wide stepping, and swimmin g. Denies constant pain. - Respiratory: Reports resolved sinus cold and cough. Denies current respiratory symptoms. - Gastrointestinal: Denies weight loss, nausea, vomiting, or changes in bowel habits. - Genitourinary: Denies dysuria, hematuria, or abnormal discharge. Physical exam (Primary Care) Vital Signs: Last Vital Signs Temp 97.7 F 12/31/24 13:18 Pulse 54 12/31/24 13:18 Resp 16 12/31/24 13:18 BP 116/56 L 12/31/24 13:18 Pulse Ox 99 12/31/24 13:18 Oxygen Delivery Method Room Air 12/31/24 13:18 Care Plan Goal for BP management: <140/90 at Goal BMI result Body Mass Index 28.0 Tobacco/Smoking Status: Tobacco use Status Tobacco use date assessed 12/31/24 12/31/24 13:23 Patient Tobacco Use Status Former Tobacco user 12/31/24 13:23 PHQ-9: PHQ-9 Score PHQ-9: Total score 0 12/31/24 13:23 Depression Screening Interpretation: Negative Thrive Assessment: Date of Thrive Assessment Date Thrive assessed 10/22/24 12/31/24 13:23 Const Other: Appearance: Alert. Oriented X3. No acute distress. Head: Normal external exam. Normocephalic. Atraumatic. Eyes: Pupils are equal, round, and reactive to light. Extraocular movements intact. Conjunctiva and sclera normal. Eyelids normal. Throat: Pharynx normal. Uvula midline. Moist mucous membranes. Neck: Normal inspection. Neck supple. Full range of motion. No adenopathy. Cardiovascular: Normal heart rate and rhythm. Heart sound normal. No murmurs noted. Pulses normal throughout. Respiratory: No respiratory distress. Painless inspiration. Abdomen: Soft and nontender. Bowel sounds normal in all 4 quadrants. No distention noted. No organomegaly noted. No visible injury noted. Patient reports intermittent Tenderness noted in the right lower quadrant, possibly muscular in nature, although not present at this time. Negative Rovsing sign. Negative psoas sign. Negative obturator sign. Negative Pinto sign. Negative rebound tenderness. Back: No costovertebral angle tenderness. Full range of motion noted. Skin: Skin warm and dry. Normal skin color. Normal skin turgor. No rashes/lesions/lacerations noted. Extremities: Extremities exhibit normal range of motion. Extremities nontender. Neuro: Oriented X 3. No motor deficit. No sensory deficit. Reflexes normal. Coding Level of Care Code Est Pt Level 4 (48364) Complex EM visit Add On G2211 Diagnoses Right lower quadrant abdominal pain R10.31 Right hip pain M25.551 Additional Codes GENEVA-7 Assessment Billing - GENEVA-7 Assessment Tool: GENEVA-7 Assessment 31126 ([id number]) PHQ-9 - 30137 - PHQ-9 Billing: Yes ([id number]) Assessment & Plan Assessment & Plan (1) Right lower quadrant abdominal pain: Code(s): R10.31 - Right lower quadrant pain Category: Medical Plan: A CT scan of the abdomen and pelvis is planned to rule out hernia and assess for any other abdominal pathology. The patient is advised to monitor for any worsening symptoms such as fever, nausea, or persistent pain, which may necessitate further evaluation. (2) Right hip pain: Code(s): M25.551 - Pain in right hip Category: Medical Plan: The patient is prescribed meloxicam for anti-inflammatory purposes and a muscle relaxant to alleviate discomfort. Warm compresses are recommended to help relax the affected area. Plan Plan Patient was informed and verbally consented to the use of an ambient scribe for clinic note documentation during this visit. 1. Suspected Hernia A CT scan of the abdomen and pelvis is planned to rule out hernia and assess for any other abdominal pathology. The patient is advised to monitor for any worsening symptoms such as fever, nausea, or persistent pain, which may necessitate further evaluation. 2. Muscle Strain The patient is prescribed meloxicam for anti-inflammatory purposes and a muscle relaxant to alleviate discomfort. Warm compresses are recommended to help relax the affected area. 3. Sinusitis The sinusitis has resolved, and no further treatment is necessary at this time. 4. Hip Pain An X-ray of the hip is considered to evaluate for any underlying bony abnormalities. Although patient declined at this time will await CT scan. I discussed with the patient the possibility of a hernia and the need for a CT scan to rule out any abdominal pathology. We also talked about the use of meloxicam and a muscle relaxant to manage the suspected muscle strain. I advised the patient to monitor for any worsening symptoms and to contact us if they occur. Orders: Orders Complete Blood Count no Diff Today R10.31 - Right lower quadrant pain Basic Metabolic Panel Today R10.31 - Right lower quadrant pain CT abdomen pelvis w IV con Today R10.31 - Right lower quadrant pain Medications: New meloxicam 15 mg PO DAILY 30 tabs 0RF cyclobenzaprine 10 mg PO Q8H 30 tabs 0RF Patient Instructions: - Take meloxicam and muscle relaxant as prescribed. - Apply warm compresses to the affected area to help relax the muscles. - Monitor for any worsening symptoms such as fever, nausea, or persistent pain, and contact the clinic if they occur. - Await a call for scheduling the CT scan and blood work.
--- OUTSIDE RECORDS SUMMARY | 2024-12-31 13:34 | XMS_ITS | Continuity of Care Document ---
[facility] Organization [facility] Address [address] [place] [address] Insurance Providers Payer Plan Claims Address Claims Phone Policy Number Group Number Relation Employer Guarantor Name Guarantor Guarantor Address Guarantor Phone [employer] [place] [facility] [address], [place] [address] tel:[phone] Self Kandi Ryder [address] [place] [address] [id number] [facility] [place] [facility] [address], [place] [address] tel:[phone] Self Kandi Ryder [address] [place] [address] [phone] Problems Condition ICD9 code ICD10 code SNOMED code Start Date End Date S tatus Encounter for screening for other metabolic disorders Z13.228 Results No Results Allergies, adverse reactions, alerts No known allergies and adverse reactions Medications No administered medications reported Vital Signs No vital signs reported Social History No smoking Hx information available
--- OUTSIDE RECORDS SUMMARY | 2024-12-31 13:34 | XMS_ITS | Continuity of Care Document ---
Author Organization [facility] Address [address] [place] [address] Insurance Providers Payer Plan Claims Address Claims Phone Policy Number Group Number Relation Employer Guarantor Name Guarantor Guarantor Address Guarantor Phone [place] [facility] [address], [place] [address] tel:[phone] [id number] 002 Self Kandi Ryder [address] [place] [id number] [facility] [place] [facility] [address], [place] [address] tel:[phone] Self Kandi Ryder [address] [place] [address] [phone] Problems Condition ICD9 code ICD10 code SNOMED code Start Date End Date S tatus Encounter for screening for other metabolic disorders Z13.228 Results No Results Allergies, adverse reactions, alerts No known allergies and adverse reactions Medications No administered medications reported Vital Signs No vital signs reported Social History No smoking Hx information available
== END 2024-12-31 13:34 | disposition home or self-care (01) ==
LOC: HO.HMCSH 13:08
PROVIDERS: PCP Internal Medicine; Visit Provider Physician Assistant Medical
DX: R10.31 Right lower quadrant pain (principal); M25.551 Pain in right hip

== ENCOUNTER → 2024-12-31 13:08 | Outpatient (BNVA) | payer OTHER, SELFPAY | PROVIDERS: PCP Internal Medicine; Visit Provider Physician Assistant Medical | DX: R10.31 Right lower quadrant pain (principal); M25.551 Pain in right hip; J32.9 Chronic sinusitis, unspecified | CPT/HCPCS: 96127 ==